=== PATIENT | female | born 2000 | race African-American/Black ===

== ENCOUNTER 2019-05-30 14:47 | Emergency (ER) | payer OTHER, MEDICAID, SELFPAY ==
[2019-05-30 15:00] VITALS: BP 108/55; PULSE 111; RESP 18; TEMP 37; O2SAT 100
--- NOTE | 2019-05-30 15:04 | PC.NURSE ---
spots on back of throat noted.
--- NOTE | 2019-05-30 15:09 | ED.URI ---
HPI - URI/Sore Throat General Chief Complaint: Upper Respiratory Symptoms Stated Complaint: Nausea and vomiting, sore throat Time Seen by Provider: 05/30/19 14:53 Source: patient and family Mode of arrival: Ambulatory Limitations: no limitations History of Present Illness HPI Narrative: Patient here with mother. Complains of subjective fever as well as sore throat with a couple episodes of nonbloody vomiting. LMP 1 month ago. Denies . Does not want test. Patient has history of frequent sore throat/infections yearly. Usually with seasonal changes as now. Denies any specific sick contacts. Has mild cough. Patient is a smoker. Took 400 mg of ibuprofen today with relief of headache and sore throat... No dyspnea no neck pain no drooling. Related Data Previous Rx's Medication Instructions Recorded amoxicillin 500 mg PO Q12H #20 tab 05/30/19 ondansetron 4 mg PO Q8H PRN #10 tab 05/30/19 Allergies Allergy/AdvReac Type Severity Reaction Status Date / Time iodine Allergy Verified 05/30/19 15:47 Review of Systems Review of Systems Narrative: GENERAL: Denies chills, fatigue, malaise,sweats. Positive for fever. No body aches or chills HEENT: Denies sinus pain, ear pain, difficulty swallowing, dizziness. Positive for sore throat. RESPIRATORY: Denies dyspnea, cough, wheezing, hemoptysis, sputum. CARDIOVASCULAR: Denies chest pain, palpitations, orthopnea, edema, GASTROINTESTINAL: Denies nausea, vomiting, abdominal pain, diarrhea, constipation, melena. : Denies dysuria, frequency, incontinence, hematuria, urinary retention. MUSCULOSKELETAL: denies weakness, joint pain, or bony pain SKIN: Denies rash, skin lesions, or other NEUROLOGIC: Denies weakness, headache, numbness, change in speech, confusion, seizures, incoordination. PSYCHIATRIC: No concerning psychosocial issues. 12 point review of systems is negative except for those stated above Patient History Social History Smoking Status: Current every day smoker Smoking Status: Current every day smoker alcohol intake frequency: other Substance Use Type: marijuana Exam Narrative Exam Narrative: GENERAL: [19] year old patient appears stated age. Well-nourished, well-developed patient, in no distress HEAD: Atraumatic. Normocephalic. . ENT: Symmetric bilateral pharyngeal erythema and mild edema with punctate exudate. No uvular shift. No tongue elevation. No trismus or malocclusion. No drooling. Mild tenderness submandibular bilaterally. NECK: Trachea midline. Non tender CARDIOVASCULAR: Regular rate and rhythm without murmurs, gallops, or rubs. RESPIRATORY: Clear to auscultation. Breath sounds equal bilaterally. No wheezes, rales, or rhonchi. BACK: Nontender without deformity or crepitance. No flank tenderness. NEURO: AOx3. Initial Vital Signs Initial Vital Signs: Vital Signs Temperature 98.6 F 05/30/19 15:00 Pulse Rate 111 H 05/30/19 15:00 Respiratory Rate 18 05/30/19 15:00 Blood Pressure 108/55 L 05/30/19 15:00 Pulse Oximetry 100 05/30/19 15:00 Course Course Course Narrative: Zofran and amoxicillin given here. Orders Ordered: ED Orders 05/30/19 15:33 Throat Culture Stat Discontinued Medications Amoxicillin (Trimox) 500 mg PO NOW ONE Stop: 05/30/19 15:35 Last Admin: 05/30/19 15:47 Dose: 500 mg Documented by: MARBELLA Ondansetron HCl (Zofran Odt) 4 mg SL NOW ONE Stop: 05/30/19 15:08 Last Admin: 05/30/19 15:46 Dose: 4 mg Documented by: MARBELLA Reevaluation(s) Reevaluation #1: Time 3:48 p.m.. Patient feels much better. Nausea medication given. Not toxic at discharge. Feels like she can go home now. Mother at bedside. Not toxic at discharge. Patient desires discharge home. Vital Signs Vital signs: Vital Signs - 8 hr 05/30/19 15:00 Temperature 98.6 F Pulse Rate 111 H Respiratory Rate 18 Blood Pressure 108/55 L Pulse Oximetry 100 MDM - URI/Sore Throat Differential Diagnosis Differential diagnosis: Likely viral infection and pharyngitis Lab Data Attestation: I reviewed the patient's lab results. Labs: Point of Care Testing Rapid Strep A Negative MDM Narrative Medical decision making narrative: Strep screen point of care reviewed. Sending for throat culture. Will treat clinically for pharyngitis. Discharge Plan Departure Patient Disposition: Home Clinical Impression: Pharyngitis Qualifiers: Pharyngitis/tonsillitis etiology: streptococcus Qualified Code(s): J02.0 - Streptococcal pharyngitis Instructions: DI for Pharyngitis/Tonsillopharyngitis -- Adult Activity Restrictions/Additional Instructions: See family doctor in a week for recheck. Keep well hydrated. Stop smoking. Return if worse. Prescriptions: New amoxicillin 500 mg tablet 500 mg PO Q12H Qty: 20 RF: 0 ondansetron 4 mg tablet,disintegrating 4 mg PO Q8H PRN (Reason: nausea and vomiting) Qty: 10 RF: 0 Referrals: [facility] [Outside] (Called provided center to obtain primary care physician.) Stand Alone Forms: Work Release Note
[2019-05-30] MEDS: ONDANSETRON 4 MG ODT SL (15:46)
[2019-05-30] MEDS: AMOXICILLIN 250 MG CAPSULE 500 MG PO (15:47)
[2019-05-30 15:56] VITALS: BP 94/52; PULSE 98; RESP 16; O2SAT 100
== END 2019-05-30 15:56 | disposition home or self-care (01) ==
PROVIDERS: Emergency Provider Emergency Medicine
DX: J02.0 Streptococcal pharyngitis (principal)
CPT/HCPCS: 87070; 87880; 99283

== ENCOUNTER 2019-06-01 07:15 | Emergency (ER) | payer OTHER, MEDICAID, SELFPAY ==
[2019-06-01 07:25] VITALS: BP 113/67; PULSE 108; RESP 18; TEMP 36.9; O2SAT 100
[2019-06-01] MEDS: ONDANSETRON 4 MG ODT SL (07:40)
[2019-06-01] MEDS: KETOROLAC 60 MG/2 ML VIAL 30 MG IV (07:45)
--- NOTE | 2019-06-01 07:45 | ED.ABDPAIN ---
HPI - Abdominal Pain General Chief Complaint: Abdominal Pain Stated Complaint: vomiting, light fever Time Seen by Provider: 06/01/19 07:25 History of Present Illness HPI narrative: Patient is a 19-year-old female who was here 2 days ago complaining of nausea vomiting sore throat and was discharged home. She was thought to have strep pharyngitis. Today the patient has had persistent nausea and vomiting unable to keep anything down. She has been retching since last night all evening and all day today. The patient is very dramatic and in extreme discomfort retching constantly spewing out widely. She is of very thin. She states that she has had fever chills and sweats associated with a mild headache. She complains of a sore throat and shortness of breath secondary to the vomiting. She has had no significant coughing. She denies any significant chest pain. She has had diffuse abdominal pain and cramps. She has had no hematemesis or coffee-ground emesis. She has had no melena. She denies having any diarrhea or urinary symptoms at this time. She states that her last menstrual period was 1 month ago. She denies ever being . Related Data Previous Rx's Medication Instructions Recorded amoxicillin 500 mg PO Q12H #20 tab 05/30/19 ondansetron 4 mg PO Q8H PRN #10 tab 05/30/19 diphenhydramine HCl [Benadryl] 25 mg PO Q6H PRN #30 cap 06/01/19 ibuprofen 600 mg PO QID PRN #20 tab 06/01/19 ondansetron HCl [Zofran] 4 mg PO Q6H PRN #15 tab 06/01/19 prochlorperazine [Compazine] 25 mg NC Q12H PRN #12 each 06/01/19 Allergies Allergy/AdvReac Type Severity Reaction Status Date / Time iodine Allergy Verified 06/01/19 07:56 Review of Systems Review of Systems Narrative: Review of systems were all negative except for those mentioned in the history of present illness. Patient History Social History Smoking Status: Current every day smoker Smoking Status: Current every day smoker alcohol intake frequency: other Substance Use Type: marijuana Exam Narrative Exam Narrative: PHYSICAL EXAM: CONSTITUTIONAL: Patient is very tender she is very uncooperative she is in extreme discomfort sitting upright of vomiting continuously dry heaves. HEAD: AT/NC EENT: PERRL, FROM of eyes, No drainage from the ears, Tympanic membranes intact bilaterally, clear EAC No epistaxis or nasal drainage Oral mucosa is moist and pink, posterior pharynx is without erythema or exudate. NECK: Supple, no obvious JVD, Trachea is midline without stridor, no palpable LN or masses. SPINE: No gross deformity, the patient is tender to palpation over her right costovertebral angle and her mid thoracic spine without any deformity. The tenderness is diffuse THORAX: No deformity, retractions, chest wall tenderness LUNGS: Clear with symmetrical breath sounds without respiratory distress HEART: Normal heart tones, regular rhythm and rate without murmur. ABDOMEN: Abdomen is flat scaphoid minimal mild guarding in the lower quadrant and left upper quadrant with tenderness and no rebound. No palpable organomegaly. EXTREMITIES: No edema, or tenderness. SKIN: No rash, bruising, petechiae or purpura. NEURO: Awake, alert, oriented, conversive, cranial nerves II-XII are symmetrical and normal, moves all 4 extremities and is ambulatory Initial Vital Signs Initial Vital Signs: Vital Signs Temperature 98.5 F 06/01/19 07:25 Pulse Rate 108 H 06/01/19 07:25 Respiratory Rate 18 06/01/19 07:25 Blood Pressure 113/67 06/01/19 07:25 Pulse Oximetry 100 06/01/19 07:25 Course Course Course Narrative: 0800: The patient did not tell me but told the nurse that she uses THC on a daily basis and probably has cannabis induced hyperemesis with abdominal pain and cramps. 0846: The patient is very uncooperative and unable to obtain swabs for rapid strep and Covid. 0940: If the patient's CT scan of the abdomen is negative for any acute pathology the patient will be discharged home. She will be advised to start taking the THC which can cause hyperemesis. She will be given a prescription for Zofran 4 mg 1-2 tablets 3 times a day as needed for nausea and vomiting. If this does not control her vomiting she can take 25 mg of Benadryl every 6 hours associated with Compazine 25 mg rectal suppository. She was advised to follow-up with her primary care physician. 1004: The patient's CT scan of her abdomen reveals no acute inflammatory process identified. There is no bowel obstruction. Right adnexal cystic lesion measuring 3.8 cm this could be a source of pelvic pain in this young patient. Trace amount of free fluid in the pelvic cul-de-sac consider further evaluation with a pelvic ultrasound. There is a small appendicolith with the appendix otherwise appearing normal. There are no kidney stones. An ultrasound of her pelvis will be obtained. Radiology recommends an ultrasound of the pelvis. 10:12 on re-examination the patient remains tender in the right lower quadrant without guarding rebound or rigidity. Ultrasound is at the patient's bedside. Will discus the patient with Dr. Kovacs 10:17 I discussed the patient with . Who agrees that the patient can can go home and be rechecked and followed for developing right lower quadrant abdominal pain. Dr. kovacs is willing to see the patient in her clinic and follow-up. Sometimes appendicoliths without evidence of appendicitis can cause colicky abdominal pain. 11:10 the patient's ultrasound revealed a 3.4 cm simple appearing right ovarian cyst. In the patient of this age is most likely represent a benign functional cyst. The clinical discretion a repeat ultrasound in 6 weeks should be obtained for improvement. The patient's free pelvic fluid is within physiological limits. Orders Ordered: ED Orders 06/01/19 07:45 Complete Blood Count AUTO DIFF Stat Comprehensive Metabolic Panel Stat Lipase Stat Test Serum,Qual Stat 06/01/19 09:13 CT abdomen pelvis wo con Stat 06/01/19 10:06 US pelvic complete Stat Discontinued Medications Diphenhydramine HCl (Benadryl) 25 mg IV NOW ONE Stop: 06/01/19 07:40 Last Admin: 06/01/19 08:00 Dose: 25 mg Documented by: HUMBERTO Sodium Chloride (Normal Saline 0.9%) 1,000 mls @ 1,000 mls/hr IV BOLUS ONE Stop: 06/01/19 08:37 Last Infusion: 06/01/19 09:19 Dose: 0 mls/hr Documented by: Admin: 06/01/19 07:46 Dose: 1,000 mls/hr Documented by: HUMBERTO Sodium Chloride (Normal Saline 0.9%) 1,000 mls @ 1,000 mls/hr IV BOLUS ONE Stop: 06/01/19 10:29 Last Infusion: 06/01/19 10:27 Dose: 0 mls/hr Documented by: Admin: 06/01/19 09:34 Dose: 1,000 mls/hr Documented by: HUMBERTO Ketorolac Tromethamine (Toradol) 30 mg IV NOW ONE Stop: 06/01/19 07:39 Last Admin: 06/01/19 07:45 Dose: 30 mg Documented by: HUMBERTO Metoclopramide HCl (Reglan) 10 mg IV NOW ONE Stop: 06/01/19 07:40 Last Admin: 06/01/19 07:46 Dose: 10 mg Documented by: HUMBERTO Ondansetron HCl (Zofran Odt) 4 mg SL NOW ONE Stop: 06/01/19 07:26 Last Admin: 06/01/19 07:40 Dose: 4 mg Documented by: HUMBERTO Vital Signs Vital signs: Vital Signs - 8 hr 06/01/19 07:25 06/01/19 08:52 06/01/19 10:00 Temperature 98.5 F Pulse Rate 108 H 91 H 80 Respiratory Rate 18 14 16 Blood Pressure 113/67 Blood Pressure [Right Arm] 91/50 L 87/51 L Pulse Oximetry 100 98 100 06/01/19 10:47 06/01/19 11:37 Temperature Pulse Rate 74 73 Respiratory Rate 14 Blood Pressure Blood Pressure [Right Arm] 81/48 L 91/54 L Pulse Oximetry 99 99 MDM - Abdominal Pain Lab Data Result diagrams: 06/01/19 07:45 06/01/19 07:45 Labs: Lab Results 06/01/19 06/01/19 06/01/19 Range/Units 07:45 07:45 07:45 WBC 9.3 (4.5-11.0) X10^3/uL RBC 4.46 (4.0-5.2) X10^6/uL Hgb 14.2 (12.0-16.0) g/dL Hct 41.4 (36-46) % MCV 92.8 (80-100) fL MCH 31.9 (26-34) PG MCHC 34.4 (30-36) % RDW 13.2 (11.6-14.8) % Plt Count 183 (150-400) X10^3/uL Neut % (Auto) Not Reportable Lymph % (Auto) Not Reportable [place] % (Auto) Not Reportable Eos % (Auto) Not Reportable Baso % (Auto) Not Reportable Lymph # (Auto) Not Reportable [place] # (Auto) Not Reportable Baso # (Auto) Not Reportable Total Counted 100 Seg Neutrophils % 57.0 (38-70) % Band Neutrophils % 3.0 (3-7) % Lymphocytes % (Manual) 22.0 L (25-45) % Atypical Lymphs % 3.0 H ( - 0) % Monocytes % (Manual) 13.0 H (2-11) % Eosinophils % (Manual) 1.0 L (2-4) % Basophils % (Manual) 1.0 (0-1) % Neutrophils # (Manual) 5580 (1458-4302) /uL RBC Morphology Normal morphology Sodium 136 L (137-145) mmol/L Potassium 3.4 (3.4-5.1) mmol/L Chloride 100 (98-107) mmol/L Carbon Dioxide 25 (22-32) mmol/L BUN 8 (7-17) mg/dL Creatinine 0.86 (0.52-1.04) mg/dL Estimated GFR > 60.0 (>60) mL/min BUN/Creatinine Ratio 9.3 (6-22) Glucose 108 H (70-100) mg/dL Calcium 9.5 (8.4-10.2) mg/dL Total Bilirubin 0.6 (0.2-1.3) mg/dL AST 25 (14-36) IU/L ALT 13 (<35) IU/L Alkaline Phosphatase 76 (38-126) U/L Total Protein 8.5 H (6.3-8.2) g/dL Albumin 4.8 (3.5-5.0) g/dL Globulin 3.7 (1.7-4.1) g/dL Albumin/Globulin Ratio 1.3 (1.0-2.8) Lipase 43 (23-300) U/L Serum , Qual Negative (Negative) Group A Strep (PCR) 06/01/19 Range/Units 08:24 WBC (4.5-11.0) X10^3/uL RBC (4.0-5.2) X10^6/uL Hgb (12.0-16.0) g/dL Hct (36-46) % MCV (80-100) fL MCH (26-34) PG MCHC (30-36) % RDW (11.6-14.8) % Plt Count (150-400) X10^3/uL Neut % (Auto) Lymph % (Auto) [place] % (Auto) Eos % (Auto) Baso % (Auto) Lymph # (Auto) [place] # (Auto) Baso # (Auto) Total Counted Seg Neutrophils % (38-70) % Band Neutrophils % (3-7) % Lymphocytes % (Manual) (25-45) % Atypical Lymphs % ( - 0) % Monocytes % (Manual) (2-11) % Eosinophils % (Manual) (2-4) % Basophils % (Manual) (0-1) % Neutrophils # (Manual) (6828-4416) /uL RBC Morphology Sodium (137-145) mmol/L Potassium (3.4-5.1) mmol/L Chloride (98-107) mmol/L Carbon Dioxide (22-32) mmol/L BUN (7-17) mg/dL Creatinine (0.52-1.04) mg/dL Estimated GFR (>60) mL/min BUN/Creatinine Ratio (6-22) Glucose (70-100) mg/dL Calcium (8.4-10.2) mg/dL Total Bilirubin (0.2-1.3) mg/dL AST (14-36) IU/L ALT (<35) IU/L Alkaline Phosphatase (38-126) U/L Total Protein (6.3-8.2) g/dL Albumin (3.5-5.0) g/dL Globulin (1.7-4.1) g/dL Albumin/Globulin Ratio (1.0-2.8) Lipase (23-300) U/L Serum , Qual (Negative) Group A Strep (PCR) Cancelled Point of care testing: Point of Care Testing Rapid Strep A Negative Discharge Plan Departure Patient Disposition: Home Clinical Impression: Retching, Dehydration, Appendicolith, Cyst of right ovary Pharyngitis Qualifiers: Pharyngitis/tonsillitis etiology: unspecified etiology Qualified Code(s): J02.9 - Acute pharyngitis, unspecified Abdominal pain Qualifiers: Abdominal location: generalized Qualified Code(s): R10.84 - Generalized abdominal pain Vomiting Qualifiers: Vomiting type: unspecified Vomiting Intractability: non-intractable Nausea presence: with nausea Qualified Code(s): R11.2 - Nausea with vomiting, unspecified Discharge Date/Time: 06/01/19 11:47 Instructions: DI for Dehydration -- Adult, DI for Ovarian Cyst, DI for Vomiting -- Adult Activity Restrictions/Additional Instructions: 1. Follow-up with your primary care physician for re-evaluation on Tuesday. 2. For the next 24 hour stay on a clear liquid diet drinking between 2 and 3 L of fluid. Advanced her diet as tolerated. 3. Take Zofran 4 mg every 8-6 hours for nausea and vomiting. If 1 tablet does not control your nausea and vomiting than double the dose. If this does not control your nausea and vomiting then take Benadryl 25 mg every 6 hours and Compazine rectal suppository 25 mg twice a day. 4. Stop taking the THC daily since the THC can cause cyclical persistent vomiting and retching. 5. Your throat culture is negative so stop the amoxicillin that you are currently taking. 6. All of your laboratory tests are within normal limits without any acute pathology. 7. For pain and discomfort you can take ibuprofen 600 mg Q 6 hours. 8. If you developed recurrent worsening right lower quadrant abdominal pain in the next 24-48 hours she need to return to the emergency department to be re-evaluated. You can follow-up with Dr. Kovacs to evaluate the stone in your appendix( appendacolith). If you develop recurrent abdominal pain persistent nausea vomiting and retching uncontrolled by the medication she need to return to the emergency department to be re-evaluated. Prescriptions: New ibuprofen 600 mg tablet 600 mg PO QID PRN (Reason: pain) Qty: 20 RF: 0 ondansetron HCl [Zofran] 4 mg tablet 4 mg PO Q6H PRN (Reason: nausea and vomiting) Qty: 15 RF: 0 prochlorperazine [Compazine] 25 mg suppository 25 mg NC Q12H PRN (Reason: nausea and vomiting) Qty: 12 RF: 0 diphenhydramine HCl [Benadryl] 25 mg capsule 25 mg PO Q6H PRN (Reason: nausea and vomiting) Qty: 30 RF: 0 No Action amoxicillin 500 mg tablet 500 mg PO Q12H Qty: 20 RF: 0 ondansetron 4 mg tablet,disintegrating 4 mg PO Q8H PRN (Reason: nausea and vomiting) Qty: 10 RF: 0 Stand Alone Forms: Work Release Note
[2019-06-01] MEDS: METOCLOPRAMIDE 10 MG/2 ML INJ IV (07:46)
[2019-06-01] MEDS: SODIUM CHLORIDE 0.9% 1,000 ML 1000 ML IV ×2 (07:46→09:34)
[2019-06-01 07:54] LABS: Hematocrit 41.4 % (36-46); Hemoglobin 14.2 g/dL (12.0-16.0); Mean Corpuscular HGB Conc 34.4 % (30-36); Mean Corpuscular Hemoglobin 31.9 PG (26-34); Mean Corpuscular Volume 92.8 fL (80-100); Platelet Count 183 X10^3/uL (150-400); Red Blood Cell Count 4.46 X10^6/uL (4.0-5.2); Red Cell Distribution Width 13.2 % (11.6-14.8); White Blood Cell Count 9.3 X10^3/uL (4.5-11.0)
[2019-06-01] MEDS: diphenhydrAMINE 50 MG/ML VIAL 25 MG IV (08:00)
[2019-06-01 08:01] LABS: Add Manual Diff / Slide Review YES
[2019-06-01 08:05] LABS: Alanine Aminotransferase 13 IU/L (<35); Albumin 4.8 g/dL (3.5-5.0); Albumin Globulin Ratio 1.3 (1.0-2.8); Alkaline Phosphatase 76 U/L (38-126); Aspartate Aminotransferase 25 IU/L (14-36); BUN Creatinine Ratio 9.3 (6-22); Bilirubin Total 0.6 mg/dL (0.2-1.3); Blood Urea Nitrogen 8 mg/dL (7-17); Calcium 9.5 mg/dL (8.4-10.2); Carbon Dioxide 25 mmol/L (22-32); Chloride 100 mmol/L (98-107); Estimated Glomerular Filt Rate > 60.0 mL/min (>60); Globulin 3.7 g/dL (1.7-4.1); Glucose 108 mg/dL (70-100); HEMOLYSIS < 15 (0-50); Lipase 43 U/L (23-300); Potassium 3.4 mmol/L (3.4-5.1); Sodium 136 mmol/L (137-145); Total Protein 8.5 g/dL (6.3-8.2)
[2019-06-01 08:13] LABS: Pregnancy Test Serum,Qual Negative (Negative)
[2019-06-01 08:52] VITALS: BP 91/50; PULSE 91; RESP 14; O2SAT 98
[2019-06-01 09:12] LABS: Neutrophils Absolute Manual 5580 /uL (3000-5900); RBC Morphology Normal Morphology; Total Cells Counted 100
--- NOTE | 2019-06-01 09:13 | DI.CT.S_ITS ---
PROCEDURE: CT ABDOMEN PELVIS WO CON INDICATIONS: tender right lower and left upper quadrants TECHNIQUE: Noncontrast 5 mm thick sections acquired from the diaphragms to the symphysis. 5 mm thick coronal and sagittal reformats were then performed. For radiation dose reduction, the following was used: automated exposure control, adjustment of mA and/or kV according to patient size. IV contrast was not utilized due to report allergy. COMPARISON: None. FINDINGS: Image quality: Excellent. Lung bases: Lung bases are clear. Heart size is normal. Urinary system: Both kidneys are normal in size. No kidney stones. No hydronephrosis or perinephric fat stranding. Both ureters appear non-dilated throughout their expected courses. Bladder is decompressed; no calcified bladder stones. Other solid organs: Liver is normal in size. Calcification at the superior medial right lobe peripherally. Gallbladder is unremarkable. Pancreas is normal in contours. Spleen is normal in size. No adrenal nodules. Peritoneum and bowel: Unenhanced bowel loops demonstrate normal wall thickness and caliber. The appendix appears normal in caliber. There is a small appendicolith measuring 6 mm, (259). No surrounding inflammatory change identified. No free fluid or air. Nodes and vessels: No retroperitoneal or mesenteric adenopathy by size criteria. Aorta and inferior vena cava are normal in caliber. Abdominal wall: No ventral hernias. Pelvis: Small amount of free fluid in the pelvic cul-de-sac. No inguinal hernias or adenopathy. Uterus is unremarkable. Right adnexal cystic lesion measuring approximately 3.8 x 3.4 cm, (269). Bones: No suspicious bony lesions. No vertebral body compression fractures. IMPRESSION: 1. No acute inflammatory process identified. No bowel obstruction. 2. Right adnexal cystic lesion measuring 3.8 cm. This could be a source of pelvic pain in this young patient. Trace amount of free fluid in the pelvic cul-de-sac. -Consider further evaluation with pelvic ultrasound. 3. Small appendicolith. Appendix otherwise appears normal. 4. No kidney stones. Dictated by: Morgan Braxton M.D. on 06/01/2019 at 9:40 Approved by: Morgan Braxton M.D. on 06/01/2019 at 9:49
[2019-06-01 10:00] VITALS: BP 87/51; PULSE 80; RESP 16; O2SAT 100
--- NOTE | 2019-06-01 10:06 | DI.US.S_ITS ---
PROCEDURE: US PELVIC COMPLETE INDICATIONS: RIGHT ADNEXAL MASS ON CT TECHNIQUE: Real-time scanning was performed of the pelvic organs, with image documentation. Additional endovaginal scanning was necessary due to incomplete visualization of the adnexal and endometrial structures by transabdominal scanning. COMPARISON: [facility], CT, CT ABDOMEN PELVIS WO CON, 06/01/2019, 9:01. FINDINGS: Transabdominal scanning: A mild amount of free pelvic fluid is seen, which is considered to be within physiologic limits. Limited scanning through the kidneys shows no hydronephrosis. Endovaginal scanning: Uterus: Uterus is normal in size at 7 x 2.8 x 4.7 cm. The endometrium measures 8-9 mm in combined thickness. Ovaries: The right ovary measures 4.3 x 3.9 x 3.4 cm and demonstrates a simple cyst that measures up to 3.4 cm. The left ovary measures 2.1 x 1.7 x 1.7 cm. The ovaries otherwise have a normal sonographic appearance. No adnexal masses are seen. IMPRESSION: 3.4 cm simple appearing right ovarian cyst. In a patient of this age, this most likely relates to a benign, functional cyst. At clinical discretion, a followup pelvic ultrasound is suggested in 6 weeks to assure resolution/ improvement. Free pelvic fluid is seen, which is considered to be within physiologic limits. Dictated by: Christopher Cortes M.D. on 06/01/2019 at 9:47 Approved by: Christopher Cortes M.D. on 06/01/2019 at 9:50
[2019-06-01 10:47] VITALS: BP 81/48; PULSE 74; O2SAT 99
[2019-06-01 11:37] VITALS: BP 91/54; PULSE 73; RESP 14; O2SAT 99
[2019-06-04 13:10] LABS: COVID19 Sendout Not Detected (Not Detected)
== END 2019-06-01 11:47 | disposition home or self-care (01) ==
PROVIDERS: Emergency Provider Emergency Medicine
DX: E86.0 Dehydration (principal); K38.9 Disease of appendix, unspecified; N83.201 Unspecified ovarian cyst, right side; J02.9 Acute pharyngitis, unspecified; R10.84 Generalized abdominal pain; R11.2 Nausea with vomiting, unspecified
CPT/HCPCS: 36415; 74176; 76856; 80053; 83690; 84703; 85025; 87635; 87880; 96361; 96374; 96375; 99284; 99285; J1200; J1885; J2765

== ENCOUNTER → 2019-07-07 09:36 | Outpatient (CLI) | payer OTHER, MEDICAID, SELFPAY ==
[2019-07-08 23:16] LABS: COVID19 Sendout Not Detected (Not Detect)
== END ==
PROVIDERS: Visit Provider Physician Assistant
DX: Z01.818 Encounter for other preprocedural examination (principal)
CPT/HCPCS: 87635

== ENCOUNTER → 2019-07-10 10:00 | Outpatient (CLI) | payer OTHER, MEDICAID, SELFPAY ==
--- NOTE | 2019-07-10 10:02 | DI.US.S_ITS ---
PROCEDURE: US PELVIC COMPLETE INDICATIONS: RTO CYST F/U RECOMMENDED BY RADIOLOGIST TECHNIQUE: Real-time scanning was performed of the pelvic organs, with image documentation. Additional endovaginal scanning was necessary due to incomplete visualization of the adnexal and endometrial structures by transabdominal scanning. COMPARISON: [facility], CT, CT ABDOMEN PELVIS WO CON, 06/01/2019, 9:01. [facility], US, US PELVIC COMPLETE, 06/01/2019, 10:19. FINDINGS: Transabdominal scanning: Limited scanning through the kidneys shows no hydronephrosis. No pathologic free abdominal or pelvic fluid. Endovaginal scanning: Uterus: Uterus is normal in size at 2.9 x 4.5 x 7.2 cm. The endometrium measures 7.6 mm in combined thickness. 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 Ovaries: The right ovary appears normal, measuring 1.9 x 1.9 x 3.5 cm and the previously documented 3.3 cm right ovarian cyst has resolved. The left ovary could not be seen due to overlying bowel gas. IMPRESSION: Resolution of dominant right ovarian cyst. The right ovary now appears normal. 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 Dictated by: Mickey Devi M.D. on 07/10/2019 at 11:06 Approved by: Mickey Devi M.D. on 07/10/2019 at 11:10
== END ==
PROVIDERS: Referring Provider Surgery; Visit Provider Surgery
DX: N83.201 Unspecified ovarian cyst, right side (principal)
CPT/HCPCS: 76830; 76856

== ENCOUNTER 2019-07-11 06:41 | Day surgery (SDC) | payer OTHER, MEDICAID, SELFPAY ==
[2019-07-04 11:01] VITALS: BMI 16.7
[2019-07-11] VITALS (11 sets, daily range): BP systolic 82–111; BP diastolic 49–69; PULSE 79–122; RESP 13–22; TEMP 36.1–37; O2SAT 97–100; BMI 16.7
--- NOTE | 2019-07-11 | PATH_ITS ---
[place] Accession Number: [id number] . 01 Material submitted: . appendix - APPENDIX . 01 Clinical history: . LAPAROSCOPIC APPENDECTOMY . 02 Diagnosis: Appendix, Appendectomy: Acute appendicitis. Negative for dysplasia and malignancy. [facility] 07/13/2019 1458 Local . 02 Electronically signed: . Anna Sparks MD, Pathologist NPI- [id number] . 01 Gross description: . Received in formalin, labeled appendix, is an intact appendix (length-8.5 cm, diameter-up to 0.7 cm) with billy-pink smooth and shiny serosa and attached mesoappendix (up to 1.5 cm in depth). The resection margin is tied off with a suture. The lumen contains billy solid firm material. The wall is up to 0.2 cm thick. No nodules, masses or lesions are identified. The resection margin is inked blue. Section code: (A1) resection margin en face and guest service representative serial sections; (A2) guest service representative serial section; (A3) one-half of the bivalved tip. ([id number]) /[facility] 07/12/2019 1520 Local . 02 Pathologist provided ICD-10: K38.8 . 02 CPT . 237486 Performed at: 01 [facility] [address], [place], [place] [id number] MD Lawrence Ho MD Phone: [phone] Performed at: 02 [facility] [address] [place], [place] [id number] MD Anna Sparks MD Phone: [phone]
[2019-07-11] MEDS: LACTATED RINGERS 1,000 ML 100 ML IV ×2 (07:23→09:37)
[2019-07-11] MEDS: PIPERACILLIN-TAZO 3.375 GM/50 ML FROZ.PIGGY IV (07:48)
--- NOTE | 2019-07-11 07:49 | PM.PREOP ---
Pre-operative Note COVID-19 COVID-19 status: Negative Interval Note History & Physical reviewed/Exam performed by Physician: Yes Changes to H&P: No
--- NOTE | 2019-07-11 08:16 | SUR.OPER ---
Supine on padded OR bed, head on pillow, left arm padded and tucked at side, right arm secured on padded armboard legs uncrossed, safety belt at thigh, tape over blanket over lower legs .
[2019-07-11] MEDS: BUPIVACAINE 0.25% W/ EPI 30 ML VIAL INJ (08:27)
--- NOTE | 2019-07-11 08:52 | P.OP_ITS ---
Operative Date/Time/Diagnoses Date of procedure: 07/11/19 Time of procedure: 08:53 Pre-op diagnosis: appendiceal colic, appendicolith Post-op diagnosis: same Procedure & Clinicians Procedure: laparoscopic appendectomy Same procedure as scheduled: Yes Indications: This is a 19 yo woman with intermittent RLQ pain and nausea with appendicolith on CT scan. Surgeon: Wendi Kovacs Click Yes if Unassisted: Yes Anesthesia Type: General Operative Notes Findings: Elongated appendix with 5mm appendicolith in the mid appendix Specimen(s): other (appendix) Estimated Blood Loss (mL): 1 Procedure in detail: The patient was brought into the OR and placed supine on the OR table. Sequential compression devices were placed on both legs and turned on. Appropriate perioperative antibiotics were given prior to the start of surgery. General anesthesia was induced the patient was intubated. A warner catheter was placed in sterile fashion. The abdomen was prepped and draped in sterile fashion. Surgical time-out was conducted. Local anesthetic was injected under the skin just superior to the umbilicus and a 5 mm vertical incision was made at this site. The umbilical stalk was grasped with a Zeyad and elevated. A Veress needle was passed through the fascia into proper position. The position was tested with a saline drop test which was appropriate for intra-abdominal Veress needle placement. The abdomen was then insufflated in the usual fashion. Once insufflated to 15 mm Hg the Veress needle was r emoved and a 5 mm optical trocar was placed under direct vision using a 5 mm 30 degree scope. Once the camera was inside the abdomen I took a look around. There was no injury from port placement. Two additional ports were placed in a similar fashion in the supra pubic midline and in the left mid abdomen and the umbilical port was upsized to a 12mm port. The patient was positioned in Trendelenberg with the right side up. The cecum was elevated and the appendix was seen extending into the pelvis. The appendix was elongated and a bulge was seen in the mid appendix. I palpated the bulge with bowel graspers and a hard stone was palpated. I elevated the appendix and divided the mesoappendix using Ligasure. I dissected up to the base of the appendix where it entered the cecum. The base was narrow and clean. I placed two PDS endoloops at the base of the appendix and divided the appendix with Ligasure. There was no bleeding. The cecum and ileum were intact and in good position. The appendix was removed through the umbilical port. At this point the umbilical port site was closed with 0 vicryl suture using Hao Deisi device. Insufflation was removed from the abdomen. The u mbilical port was closed with 3-0 Vicryl in the subcutaneous layers, and 4 Monocryl in the skin. The remaining port sites were closed with 4 Monocryl in the skin. Each port site was sealed with steri strips. Local anesthetic was given at each of the port sites and in the fascia. This concluded the procedure. At this point the needle, sponge, and instrument counts were correct x 2. The appendix was passed off the table for pathology. Patient was awakened from anesthesia and extubated. She was transferred to the postanesthesia care unit in stable condition. Complications: none Post-operative Condition: stable Disposition: PACU
[2019-07-11] MEDS: LORazepam 2 MG/ML INJ 0.25 MG IV ×2 (09:06→09:19)
[2019-07-11] MEDS: HYDROMORPHONE 2 MG INJ IV (09:09)
[2019-07-11] MEDS: METOCLOPRAMIDE 10 MG/2 ML INJ IV (09:28)
[2019-07-11] MEDS: OXYCODONE/ACETAMINOPHEN 5/325 TABLET 1 TAB PO (09:35)
--- NOTE | 2019-07-11 09:38 | SUR.PHASEI ---
Patient came to PACU very anxious and moving all over the bed. Unable to console patient. Received order for ativan with an order to repeat x1 if needed. Medicated per orders. Patient now resting peacefully on stretcher. States pain is 6/10. Decreased nausea.
--- NOTE | 2019-07-11 10:05 | SUR.PHASEII ---
Received report from Phase 1 nurse. Patient resting quietly in stretcher with eyes closed. No distress noted. Arousable to verbal stimuli. Mother to bedside. Awaiting physician to update family. Call light in place.
--- NOTE | 2019-07-11 10:42 | SUR.PHASEII ---
Patient drowsy but awake, playing with her cell phone. Ambulated to bathroom without difficulty and denies pain at this time. All instructions reviewed with mother of patient. Waiting for surgeon to discuss follow up with patient.
--- NOTE | 2019-07-11 11:11 | SUR.PHASEII ---
10:55 This nurse called into the room to speak with surgeon regarding discharge instructions. Surgeon states that if patient wants to leave, patient may leave. Discharge order noted in computer. Discontinued IV with catheter intact. Patient ambulating to bathroom.
--- NOTE | 2019-07-11 11:14 | SUR.PHASEII ---
OR nurse called this nurse with message from Dr Kovacs not to let patient go, and that patient might be discharged later today. Advised patient that surgeon still wanted to talk to patient.
--- NOTE | 2019-07-11 11:34 | SUR.PHASEII ---
Dr Chakraborty to PACU to discuss results with patient and mother. Patient okay to be discharged home now. Patient home with mother in stable condition.
== END 2019-07-11 11:33 | disposition home or self-care (01) ==
PROVIDERS: Referring Provider Surgery; Visit Provider Surgery
PROC: 0DTJ4ZZ Resection of Appendix, Percutaneous Endoscopic Approach (ICD-10-PCS; CPT 44970; principal; 2019-07-11 07:45)
DX: K35.80 Unspecified acute appendicitis (principal); K38.8 Other specified diseases of appendix; J45.909 Unspecified asthma, uncomplicated
CPT/HCPCS: 44970; J1100; J1170; J1885; J2060; J2250; J2405; J2543; J2704; J2765; J3010